=== PATIENT | female | born 1935 | race Caucasian/White ===

== ENCOUNTER 2016-10-21 12:00 | Emergency (ER) | payer BC ==
[~2016-10-21] VITALS: Ht 152.4 cm; Wt 80.0 kg
[~2016-10-21 12:00] MED LIST: ASPI81TA28 PO
[2016-10-21 12:03] VITALS: TEMP 36.8; Ht 152.4 cm; Wt 80.0 kg
--- NOTE | 2016-10-21 12:35 | EMERGENCY ROOM VISIT NOTE ---
History First contact with patient: 12:04 Chief Complaint: SWELLING TO EXTREMITY Stated Complaint: SWOLLEN LEG History of Present Illness The patient is a 81 year old female who presents to the Emergency Room with complaints of right ankle and foot swelling for greater than 1 week. The patient denies any specific injury. The patient has been going to physical therapy for her back. She states that her foot is actually less swollen now than it was prior to physical therapy. The patient tried to get in to see her regular physician but could not get an appointment soon enough. Patient denies fever or chills. Review of Systems All systems have been listed, reviewed, and are negative other than those previously mentioned. Please see Additional Medical History Sheet. Social History Smoking Status: Never Smoker Marital Status: (discharge) Housing Status: lives with significant other Current/Historical Medications Scheduled Aspirin (Aspirin Ec), 81 MG PO DAILY Cephalexin Monohydrate (Keflex), 500 MG PO TID Allergies Coded Allergies: No Known Allergies (Unverified , 10/21/16) Physical Exam Vital Signs Date Time Temp Pulse Resp B/P Pulse Ox O2 Delivery O2 Flow Rate FiO2 10/21/16 14:03 66 18 156/79 98 Room Air 10/21/16 12:03 36.8 81 18 138/92 95 Room Air Physical Exam GENERAL: Patient is awake, alert. Patient is oriented x 3. Patient responds appropriately and follows commands. Patient is well-nourished and hydrated. Patient is nontoxic appearing. DERMATOLOGIC: No erythema, pallor, cyanosis or rash. No diaphoresis. HEENT: Normal head. Pupils equal, reactive to light and accommodation. Extraocular muscles are intact. MUSCULOSKELETAL: The patient has significant swelling of her right ankle and foot. She has marked tenderness along the lateral malleolus and less tenderness along the medial malleolus. The patient has some tenderness in the calf and minimal tenderness in the thigh. There is slight erythema. No increased warmth. NEUROLOGIC: No gross motor sensory function deficits. Medical Decision & Procedures ER Provider Diagnostic Interpretation: RIGHT ANKLE 3 VIEWS CLINICAL HISTORY: Right ankle swelling. FINDINGS: 3 views of the right ankle are compared to study dated 02/04/2014. The skeletal structures are osteopenic. No fracture is identified. The ankle mortise is intact. There is mild spurring along the dorsal aspect of the tarsal bones. Enthesophytes arise from the medial malleolus. There is marked soft tissue edema in the distal calf and around the ankle. No large joint effusion is identified. IMPRESSION: Soft tissue edema with no acute bony abnormality seen in the right ankle. Electronically signed by: Ben Edwards M.D. 10/21/2016 12:39 PM Dictated Date/Time: 10/21/2016 12:38 PM The status of this report is Signed. Draft = Not yet reviewed or approved by Radiologist. Signed = Reviewed and approved by Radiologist. ULTRASOUND RIGHT VENOUS DOPP LOWER EXT UNILAT CLINICAL HISTORY: Right leg swelling COMPARISON STUDY: No previous studies for comparison. FINDINGS: Real-time and color flow Doppler imaging were performed. Flow was seen within the femoral, popliteal and calf veins with no intraluminal thrombus demonstrated. The saphenous vein is patent. IMPRESSION: No evidence of right lower extremity DVT. Electronically signed by: Davi Cardozo M.D. 10/21/2016 1:44 PM Dictated Date/Time: 10/21/2016 1:43 PM Medical Decision Nurses notes were reviewed. Differential diagnosis includes DVT, cellulitis, occult fracture. Ultrasound and regular x-rays of the ankle were obtained. Please see above. No blood work was felt necessary. Imaging studies reveal no fracture, dislocation subluxation or DVT. The patient does have some minimal erythema but no source of infection. The patient believes that she may have an infection. The patient will be placed on a 10 day course of Keflex. She is encouraged to dmitri and elevate her leg as much as possible. The patient is to follow-up with a family physician in 2 weeks. Impression Primary Impression: Swelling of right extremity Departure Information Dispostion Home / Self-Care Prescriptions Cephalexin Monohydrate (Keflex) 500 Mg Cap 500 MG PO TID, #30 CAP Prov: Med Biggs M.D. 10/21/16 Referrals Mert Wells MD (PCP) Patient Instructions My [facility] [employer] Additional Instructions 500 mg of Keflex 3 times a day for 10 days. Apply an Dmitri wrap to your leg at all times when you are up. Elevate your leg as much as possible. Follow-up with a family physician in 2 weeks.
--- NOTE | 2016-10-21 12:41 | DIAGNOSTIC IMAGING REPORT ---
RIGHT ANKLE 3 VIEWS CLINICAL HISTORY: Right ankle swelling. FINDINGS: 3 views of the right ankle are compared to study dated 02/04/2014. The skeletal structures are osteopenic. No fracture is identified. The ankle mortise is intact. There is mild spurring along the dorsal aspect of the tarsal bones. Enthesophytes arise from the medial malleolus. There is marked soft tissue edema in the distal calf and around the ankle. No large joint effusion is identified. IMPRESSION: Soft tissue edema with no acute bony abnormality seen in the right ankle. Electronically signed by: Ben Edwards M.D. 10/21/2016 12:39 PM Dictated Date/Time: 10/21/2016 12:38 PM
--- NOTE | 2016-10-21 13:46 | DIAGNOSTIC IMAGING REPORT ---
ULTRASOUND RIGHT VENOUS DOPP LOWER EXT UNILAT CLINICAL HISTORY: Right leg swelling COMPARISON STUDY: No previous studies for comparison. FINDINGS: Real-time and color flow Doppler imaging were performed. Flow was seen within the femoral, popliteal and calf veins with no intraluminal thrombus demonstrated. The saphenous vein is patent. IMPRESSION: No evidence of right lower extremity DVT. Electronically signed by: Davi Cardozo M.D. 10/21/2016 1:44 PM Dictated Date/Time: 10/21/2016 1:43 PM
[2016-10-21 14:03] VITALS: BP 156/79; PULSE 66; O2SAT 98
[2016-10-21] MEDS ORDERED: CEPH500C PO (14:18)
== END 2016-10-21 14:32 | disposition home or self-care (01) ==
LOC: C.EDB 12:04 → C.EDA 14:32
DX: R22.41 Localized swelling, mass and lump, right lower limb (principal)

== ENCOUNTER → 2016-11-06 | Outpatient (CLI) | payer BC ==
[~2016-11-06] MED LIST changes: +CEPH500C PO
--- NOTE | 2016-11-06 13:48 | DIAGNOSTIC IMAGING REPORT ---
RIGHT ANKLE MIN 3 VIEWS ROUTINE CLINICAL HISTORY: ANKLE SWELLING, CELLULITIS OF R LOWER EXTREMITY Right pain. Edema. COMPARISON: 10/21/2016 DISCUSSION: Persistent soft tissue edema. Tiny avulsion from the lateral margin of the medial malleolus. Ankle mortise is aligned anatomically. Subtalar joint is intact. IMPRESSION: Tiny mervat like avulsion adjacent to the medial malleolus. Moderate soft tissue edema diminished from the prior study. Electronically signed by: Ibrahima Mercedes M.D. 11/06/2016 1:46 PM Dictated Date/Time: 11/06/2016 1:45 PM
--- NOTE | 2016-11-06 13:49 | DIAGNOSTIC IMAGING REPORT ---
RIGHT FOOT MIN 3 VIEWS ROUTINE CLINICAL HISTORY: Bilateral ankle and pain for an swelling. Cellulitis. COMPARISON: None FINDINGS: The tarsometatarsal joints are intact. There is soft tissue swelling the right foot. No fracture or suspicious lesion is evident. There is possible erosion of the medial aspect of the right first metatarsal head. 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 IMPRESSION: 1. No acute fracture or dislocation of the right foot. 2. Possible erosion of the medial aspect of the right first metatarsal head. Mild soft tissue swelling. This finding is nonspecific and could be artifactual however etiologies such as gout or osteomyelitis could have this imaging appearance. Electronically signed by: Odell Lagos M.D. 11/06/2016 1:47 PM Dictated Date/Time: 11/06/2016 1:42 PM
--- NOTE | 2016-11-06 13:51 | DIAGNOSTIC IMAGING REPORT ---
LEFT ANKLE 3 VIEWS CLINICAL HISTORY: Left ankle swelling. FINDINGS: 3 views of the left ankle are obtained. No prior studies are available for comparison at the time of dictation. The skeletal structures are osteopenic. No fracture is seen. The ankle mortise is intact. There is no significant joint effusion. Mild soft tissue edema is suggested around the ankle. IMPRESSION: Suspect mild soft tissue swelling. No acute bony abnormality is seen. Electronically signed by: Ben Edwards M.D. 11/06/2016 1:50 PM Dictated Date/Time: 11/06/2016 1:49 PM
[2016-11-06 13:53] LABS: BASO % 0.8 %; BASO ABS # 0.09 K/uL (0-0.2); EOS % 1.4 %; HEMATOCRIT 36.3 % (37-47); IG% 0.3 %; LYMPH % 19.7 %; LYMPH ABS # 2.22 K/uL (1.2-3.4); MEAN CELL VOLUME 86.8 fL (80-100); MEAN CORPUSCULAR HEMOGLOBIN 29.7 pg (25-34); MEAN PLATELET VOLUME 9.9 fL (7.4-10.4); NEUT % 69.8 %; PLATELET COUNT 388 K/uL (130-400); RED BLOOD COUNT 4.18 M/uL (4.2-5.4); WHITE BLOOD COUNT 11.26 K/uL (4.8-10.8)
--- NOTE | 2016-11-06 13:59 | DIAGNOSTIC IMAGING REPORT ---
LEFT FOOT MIN 3 VIEWS ROUTINE CLINICAL HISTORY: ANKLE SWELLING, CELLULITIS OF R LOWER EXTREMITY COMPARISON: None. DISCUSSION: The bones and joint spaces appear intact. There is no evidence of fracture, dislocation or bony disease. Mild soft tissue edema. Mild degenerative changes throughout. No acute bony abnormality. IMPRESSION: Mild soft tissue edema. Mild degenerative change. Electronically signed by: Ibrahima Mercedes M.D. 11/06/2016 1:58 PM Dictated Date/Time: 11/06/2016 1:57 PM
[2016-11-06 14:12] LABS: COMPLETE YES; MEAN CORPUSCULAR HGB CONC 34.2 g/dl (32-36)
== END | disposition home or self-care (01) ==
LOC: C.RAD 12:43
PROVIDERS: ATTEND Nurse Practitioner
DX: M25.473 Effusion, unspecified ankle (principal); L03.115 Cellulitis of right lower limb; M79.89 Other specified soft tissue disorders

== ENCOUNTER → 2016-11-24 | Outpatient (CLI) | payer BC ==
[2016-11-24 15:21] LABS: BASO % 0.8 %; BASO ABS # 0.08 K/uL (0-0.2); COMPLETE YES; EOS % 2.5 %; HEMATOCRIT 39.1 % (37-47); IG% 0.4 %; LYMPH % 24.8 %; LYMPH ABS # 2.54 K/uL (1.2-3.4); MEAN CELL VOLUME 87.3 fL (80-100); MEAN CORPUSCULAR HEMOGLOBIN 28.8 pg (25-34); MEAN PLATELET VOLUME 10.3 fL (7.4-10.4); MONO % 7.3 %; NEUT % 64.2 %; PLATELET COUNT 303 K/uL (130-400); RED BLOOD COUNT 4.48 M/uL (4.2-5.4); WHITE BLOOD COUNT 10.23 K/uL (4.8-10.8)
[2016-11-24 15:37] LABS: ALT/SGPT 22 U/L (12-78); AST/SGOT 18 U/L (15-37); BLOOD UREA NITROGEN 17 mg/dl (7-18); BUN/CREATININE RATIO 14.2 (10-20); CALCIUM 9.1 mg/dl (8.5-10.1); CARBON DIOXIDE 27 mmol/L (21-32); CHLORIDE 106 mmol/L (98-107); GLUCOSE 128 mg/dl (70-99); POTASSIUM 4.1 mmol/L (3.5-5.1); SODIUM 141 mmol/L (136-145); URIC ACID 9.4 mg/dl (2.6-7.2)
[2016-11-24 15:47] LABS: ALB/GLOB RATIO 0.8 (0.9-2); ALKALINE PHOSPHATASE 86 U/L (45-117); THYROID STIMULATING HORMONE 0.874 uIu/ml (0.300-4.500)
== END | disposition home or self-care (01) ==
LOC: C.LAB 13:23
PROVIDERS: ATTEND Internal Medicine Cardiovascular Disease
DX: M79.606 Pain in leg, unspecified (principal); R60.0 Localized edema

== ENCOUNTER → 2017-01-01 | Outpatient (CLI) | payer BC ==
[2017-01-01 13:03] LABS: BASO % 1.2 %; BASO ABS # 0.13 K/uL (0-0.2); COMPLETE YES; HEMATOCRIT 35.7 % (37-47); IG% 0.6 %; LYMPH % 28.8 %; LYMPH ABS # 3.13 K/uL (1.2-3.4); MEAN CELL VOLUME 84.6 fL (80-100); MEAN CORPUSCULAR HEMOGLOBIN 29.6 pg (25-34); MEAN PLATELET VOLUME 9.6 fL (7.4-10.4); MONO % 6.8 %; NEUT % 60.6 %; PLATELET COUNT 385 K/uL (130-400); RED BLOOD COUNT 4.22 M/uL (4.2-5.4); WHITE BLOOD COUNT 10.87 K/uL (4.8-10.8)
[2017-01-01 13:19] LABS: BLOOD UREA NITROGEN 27 mg/dl (7-18); BUN/CREATININE RATIO 18.1 (10-20); CALCIUM 9.9 mg/dl (8.5-10.1); CARBON DIOXIDE 27 mmol/L (21-32); CHLORIDE 103 mmol/L (98-107); GLUCOSE 107 mg/dl (70-99); POTASSIUM 3.8 mmol/L (3.5-5.1); SODIUM 138 mmol/L (136-145)
[2017-01-01 13:22] LABS: ALB/GLOB RATIO 0.8 (0.9-2); ALKALINE PHOSPHATASE 77 U/L (45-117); ALT/SGPT 23 U/L (12-78); AST/SGOT 19 U/L (15-37)
== END | disposition home or self-care (01) ==
LOC: C.LAB 12:24
PROVIDERS: ATTEND Internal Medicine
DX: M79.671 Pain in right foot (principal); E79.0 Hyperuricemia without signs of inflammatory arthritis and tophaceous disease

== ENCOUNTER → 2017-01-18 | Outpatient (CLI) | payer BC ==
--- NOTE | 2017-01-18 11:52 | DIAGNOSTIC IMAGING REPORT ---
EXAMINATION: RENAL ULTRASOUND CLINICAL HISTORY: Chronic stage III renal disease COMPARISON STUDY: None FINDINGS: The right kidney measures 10.5 cm. The left kidney measures 10.8 cm. There is no evidence of hydronephrosis. There are no renal masses. No bladder abnormalities are visualized. Bilateral ureteral jets were visualized. Note is made of cholelithiasis IMPRESSION : 1. Symmetric renal size and cortical thickness 2. No evidence of hydronephrosis 3. Cholelithiasis Electronically signed by: Davi Cardozo M.D. 01/18/2017 11:50 AM Dictated Date/Time: 01/18/2017 11:49 AM
[2017-01-18 12:48] LABS: BLOOD UREA NITROGEN 22 mg/dl (7-18); BUN/CREATININE RATIO 18.4 (10-20); CALCIUM 9.4 mg/dl (8.5-10.1); CARBON DIOXIDE 26 mmol/L (21-32); CHLORIDE 106 mmol/L (98-107); GLUCOSE 99 mg/dl (70-99); POTASSIUM 4.6 mmol/L (3.5-5.1); SODIUM 138 mmol/L (136-145)
== END | disposition home or self-care (01) ==
LOC: C.ULTR 10:41
PROVIDERS: ATTEND Internal Medicine
DX: N18.3 Chronic kidney disease, stage 3 (moderate) (principal); K80.20 Calculus of gallbladder without cholecystitis without obstruction